=== PATIENT | female | born 1990 | race Two or more races ===

== ENCOUNTER 2017-03-05 11:03 | Emergency (ER) | payer OTHER ==
[~2017-03-05] VITALS: Ht 165.1 cm; Wt 85.4 kg
[~2017-03-05 11:03] MED LIST: ADVIL,NUPRIN,M200 MG PO; ALAVERT10 M1 PO; IBUPROFEN800 MG PO; KEFLEX500 MG PO; MOTRIN800 MG PO; Motrin PO; NAPROSYN500 MG PO; PRENATAL CAPSU1 EACH PO; PROMETHAZINE HC25 M1 PO; ULTRAM50 MG PO
[2017-03-05 12:34] LABS: ADD MIUA? NO; BILIRUBIN NEGATIVE; BLOOD NEGATIVE; COLOR YELLOW ((YELLOW)); GLUCOSE (STRIP) NEGATIVE; KETONES NEGATIVE; LEUKOCYTES NEGATIVE; NITRITE NEGATIVE; PROTEIN (STRIP) NEGATIVE; SPECIFIC GRAVITY 1.028 (1.000-1.030); UCUL ADDED? NO
[2017-03-05 12:54] LABS: CHLORIDE 103 mEq/L (99-109); POTASSIUM 4.1 mEq/L (3.7-5.4); SODIUM 141 mEq/L (136-147)
[2017-03-05 12:56] LABS: GLUCOSE 84 mg/dL (70-99)
[2017-03-05 13:00] LABS: GFR ESTIMATE (CALCULATED) > 59 mL/min/
[2017-03-05 13:01] LABS: ANION GAP 11 MEQ/L (2-14); UREA NITROGEN (BUN) 13 mg/dL (9-23)
[2017-03-05 13:02] LABS: TOTAL BILIRUBIN 0.8 mg/dL (0.0-1.0)
[2017-03-05 13:04] LABS: ALKALINE PHOSPHATASE 152 IU/L (3-129)
[2017-03-05 13:04] LABS: EOSINOPHIL (%) 5.4 % (0-5); EOSINOPHIL COUNT 0.4 K/uL (0-0.3); HEMATOCRIT 40.9 % (36.0-46.0); IMMATURE GRANULOCYTE (%) 0.1 % (0.0-0.7); LYMPHOCYTE COUNT 2.6 K/uL (1.0-2.8); MCH 27.6 PG (29.0-34.0); MCHC 32.8 G/DL (30.0-36.0); MCV 84.3 FL (83-99); MEAN PLAT.VOLUME 9.2 uM^3 (9.5-12.4); MONOCYTE (%) 6.6 % (3-12); MONOCYTE COUNT 0.5 K/uL (0-0.8); NEUTROPHIL (%) 52.7 % (45-76); PLATELET COUNT 300 K/uL (156-360); RBC DIS.WIDTH-SD 39.9 % (39-53); RED BLOOD COUNT 4.85 M/uL (3.80-5.20); WHITE BLOOD COUNT 7.6 K/uL (4.1-10.2)
[2017-03-05] MEDS ORDERED: ZOFRAN4 MG PO (14:29)
[2017-03-05] MEDS ORDERED: BENTYL20 MG PO (14:29)
[2017-03-05 14:39] VITALS: BP 102/78
== END 2017-03-05 14:40 | disposition home or self-care (01) ==
LOC: EME 11:03
PROVIDERS: Emergency Medicine
DX: R10.9 Unspecified abdominal pain (principal); R11.0 Nausea; R35.0 Frequency of micturition; R39.15 Urgency of urination; K42.9 Umbilical hernia without obstruction or gangrene
CPT/HCPCS: 74022; 80053; 81003; 85025; 99281; 99284; J1885; J7030

== ENCOUNTER 2017-05-01 10:09 | Emergency (ER) | payer OTHER ==
[~2017-05-01] VITALS: Ht 165.1 cm; Wt 86.4 kg
[~2017-05-01 10:09] MED LIST changes: +BENTYL20 MG PO; +ZOFRAN4 MG PO
[2017-05-01 14:52] LABS: HEMATOCRIT 40.9 % (36.0-46.0); MCH 27.9 PG (29.0-34.0); MCHC 32.8 G/DL (30.0-36.0); MEAN PLAT.VOLUME 9.5 uM^3 (9.5-12.4); PLATELET COUNT 343 K/uL (156-360); RBC DIS.WIDTH-CV 13.2 % (11.8-14.6); RBC DIS.WIDTH-SD 41.2 % (39-53); RED BLOOD COUNT 4.81 M/uL (3.80-5.20); WHITE BLOOD COUNT 8.3 K/uL (4.1-10.2)
[2017-05-01 14:54] LABS: ADD MIUA? YES; BILIRUBIN NEGATIVE; BLOOD MODERATE; COLOR YELLOW ((YELLOW)); GLUCOSE (STRIP) NEGATIVE; KETONES NEGATIVE; LEUKOCYTES TRACE; NITRITE NEGATIVE; PROTEIN (STRIP) NEGATIVE; SPECIFIC GRAVITY 1.016 (1.000-1.030); UROBILINOGEN 0.2 MG/DL (0.2-1.0)
[2017-05-01 14:59] LABS: BACTERIA RARE /HPF; EPITHELIAL CELLS 4+ /HPF; MUCUS TRACE /LPF; RED BLOOD CELLS 0-5 /HPF (0-5); WHITE BLOOD CELLS 0-5 /HPF (0-5)
[2017-05-01 15:00] LABS: INTERNAL CONTROL VALID? YES
[2017-05-01 15:02] LABS: CHLORIDE 105 mEq/L (99-109); POTASSIUM 4.2 mEq/L (3.7-5.4); SODIUM 139 mEq/L (136-147)
[2017-05-01 15:04] LABS: GLUCOSE 80 mg/dL (70-99)
[2017-05-01 15:06] LABS: ANION GAP 8 MEQ/L (2-14); TOTAL BILIRUBIN 0.7 mg/dL (0.0-1.0)
[2017-05-01 15:08] LABS: ALKALINE PHOSPHATASE 152 IU/L (3-129); GFR ESTIMATE (CALCULATED) > 59 mL/min/
[2017-05-01 15:09] LABS: UREA NITROGEN (BUN) 16 mg/dL (9-23)
[2017-05-01 15:11] LABS: LIPASE 35 U/L (1.0-51.0)
[2017-05-01] MEDS ORDERED: MOTRIN600 MG PO (16:24)
[2017-05-01 16:34] VITALS: BP 115/75
== END 2017-05-01 16:34 | disposition home or self-care (01) ==
LOC: EME 10:09 → RME 10:09
PROVIDERS: Physician Assistant
DX: R10.9 Unspecified abdominal pain (principal); S39.012A Strain of muscle, fascia and tendon of lower back, initial encounter; X58.XXXA Exposure to other specified factors, initial encounter; R51 Headache
CPT/HCPCS: 80053; 81003; 83690; 84703; 85027; 99281; 99284

== ENCOUNTER 2017-09-16 14:24 | Emergency (ER) | payer OTHER ==
[~2017-09-16] VITALS: Ht 165.1 cm; Wt 87.8 kg
[~2017-09-16 14:24] MED LIST changes: +MOTRIN600 MG PO
[2017-09-16] MEDS ORDERED: PERCOCET 5/31 TABLET PO (16:32)
[2017-09-16] MEDS ORDERED: MOTRIN800 MG PO (16:32)
[2017-09-16 17:34] VITALS: BP 109/59
[2017-09-20] MEDS ORDERED: ENDOCET 5-3251 EACH PO (12:21)
[2017-09-20] MEDS ORDERED: MOTRIN800 MG PO (12:22)
== END 2017-09-16 17:36 | disposition home or self-care (01) ==
LOC: EME 14:24 → EXP 14:24
DX: S82.391A Other fracture of lower end of right tibia, initial encounter for closed fracture (principal); S82.831A Other fracture of upper and lower end of right fibula, initial encounter for closed fracture; W10.9XXA Fall (on) (from) unspecified stairs and steps, initial encounter; Y93.01 Activity, walking, marching and hiking; Y92.008 Other place in unspecified non-institutional (private) residence as the place of occurrence of the external cause; F32.9 Major depressive disorder, single episode, unspecified; Z91.040 Latex allergy status
CPT/HCPCS: 73610; 99281; 99284; J2405; J3010

== ENCOUNTER 2017-09-25 09:42 | Day surgery (SDC) | payer OTHER ==
[~2017-09-25] VITALS: Ht 165.1 cm; Wt 88.0 kg
[~2017-09-25 09:42] MED LIST changes: +ENDOCET 5-3251 EACH PO; +PERCOCET 5/31 TABLET PO
[2017-09-25 10:57] VITALS: BP 120/64
[2017-09-25 17:56] VITALS: BP 118/72
[2017-09-25 18:31] VITALS: BP 127/76
== END 2017-09-25 18:35 | disposition home or self-care (01) ==
LOC: SDC 09:42
PROVIDERS: Orthopaedic Surgery
PROC: 0QHJ04Z Insertion of Internal Fixation Device into Right Fibula, Open Approach (ICD-10-PCS; principal; 2017-09-25)
PROC: 0QSG04Z Reposition Right Tibia with Internal Fixation Device, Open Approach (ICD-10-PCS; principal; 2017-09-25)
PROC: 0QSJ04Z Reposition Right Fibula with Internal Fixation Device, Open Approach (ICD-10-PCS; principal; 2017-09-25)
DX: S82.301A Unspecified fracture of lower end of right tibia, initial encounter for closed fracture (principal); S82.831A Other fracture of upper and lower end of right fibula, initial encounter for closed fracture; W10.9XXA Fall (on) (from) unspecified stairs and steps, initial encounter; F41.8 Other specified anxiety disorders; F17.200 Nicotine dependence, unspecified, uncomplicated; Z85.41 Personal history of malignant neoplasm of cervix uteri
CPT/HCPCS: 73610; 76000; 81025; C1713; J0131; J0690; J1100; J1885; J2250; J2405; J2795; J3010; S0020

== ENCOUNTER 2017-11-26 03:14 | Emergency (ER) | payer OTHER ==
[~2017-11-26] VITALS: Ht 165.1 cm; Wt 84.6 kg
[2017-11-26 03:43] LABS: HEMATOCRIT 38.6 % (36.0-46.0); HEMOGLOBIN 13.1 G/DL (11.9-15.5); MCH 28.1 PG (29.0-34.0); MCHC 33.9 G/DL (30.0-36.0); MCV 82.8 FL (83-99); PLATELET COUNT 307 K/uL (156-360); RBC DIS.WIDTH-CV 12.7 % (11.8-14.6); RBC DIS.WIDTH-SD 38.3 % (39-53); RED BLOOD COUNT 4.66 M/uL (3.80-5.20); WHITE BLOOD COUNT 10.3 K/uL (4.1-10.2)
[2017-11-26 03:53] LABS: CHLORIDE 105 mEq/L (99-109); POTASSIUM 3.5 mEq/L (3.7-5.4); SODIUM 137 mEq/L (136-147)
[2017-11-26 03:55] LABS: GLUCOSE 98 mg/dL (70-99)
[2017-11-26 03:59] LABS: CREATININE 0.8 mg/dL (0.6-1.3); GFR ESTIMATE (CALCULATED) > 59 mL/min/
[2017-11-26 04:00] LABS: UREA NITROGEN (BUN) 14 mg/dL (9-23)
[2017-11-26 04:22] LABS: D-DIMER ELISA < 150.00 ng/mLDDU (<230)
[2017-11-26] MEDS ORDERED: PERCOCET 5/31 TABLET PO (05:48)
[2017-11-26 05:58] VITALS: BP 110/76
== END 2017-11-26 05:59 | disposition home or self-care (01) ==
LOC: EME 03:14
PROVIDERS: Emergency Medicine
DX: M79.604 Pain in right leg (principal); G89.29 Other chronic pain; G43.909 Migraine, unspecified, not intractable, without status migrainosus; R56.9 Unspecified convulsions; F32.9 Major depressive disorder, single episode, unspecified; F31.9 Bipolar disorder, unspecified; F17.200 Nicotine dependence, unspecified, uncomplicated; Z91.040 Latex allergy status; Z91.010 Allergy to peanuts; Z91.018 Allergy to other foods
CPT/HCPCS: 80048; 85027; 85379; 93971; 99281; 99284

== ENCOUNTER 2017-12-11 14:18 | Emergency (ER) | payer OTHER ==
[~2017-12-11] VITALS: Ht 165.1 cm; Wt 84.2 kg
[2017-12-11 15:15] LABS: HEMATOCRIT 39.3 % (36.0-46.0); HEMOGLOBIN 13.4 G/DL (11.9-15.5); MCH 28.2 PG (29.0-34.0); MCHC 34.1 G/DL (30.0-36.0); MCV 82.6 FL (83-99); PLATELET COUNT 368 K/uL (156-360); RBC DIS.WIDTH-CV 12.7 % (11.8-14.6); RBC DIS.WIDTH-SD 38.5 % (39-53); RED BLOOD COUNT 4.76 M/uL (3.80-5.20); WHITE BLOOD COUNT 7.7 K/uL (4.1-10.2)
[2017-12-11 15:22] LABS: ALBUMIN 4.5 g/dL (3.2-4.8)
[2017-12-11 15:23] LABS: CHLORIDE 105 mEq/L (99-109); POTASSIUM 4.1 mEq/L (3.7-5.4); SODIUM 141 mEq/L (136-147)
[2017-12-11 15:25] LABS: GLUCOSE 91 mg/dL (70-99); TOTAL PROTEIN 8.1 g/dL (6.4-8.3)
[2017-12-11 15:26] LABS: APPEARANCE SL.HAZY ((CLEAR)); BILIRUBIN NEGATIVE; BLOOD NEGATIVE; COLOR YELLOW ((YELLOW)); GLUCOSE (STRIP) NEGATIVE; KETONES NEGATIVE; LEUKOCYTES TRACE; NITRITE NEGATIVE; PROTEIN (STRIP) 30; UROBILINOGEN 0.2 MG/DL (0.2-1.0)
[2017-12-11 15:27] LABS: TOTAL BILIRUBIN 0.9 mg/dL (0.0-1.0)
[2017-12-11 15:28] LABS: ALKALINE PHOSPHATASE 166 IU/L (3-129)
[2017-12-11 15:29] LABS: CREATININE 1.1 mg/dL (0.6-1.3); GFR ESTIMATE (CALCULATED) > 59 mL/min/
[2017-12-11 15:30] LABS: AST (GOT) 22 IU/L (2-34); UREA NITROGEN (BUN) 17 mg/dL (9-23)
[2017-12-11 15:32] LABS: ALT (GPT) 24 IU/L (3-49)
[2017-12-11 15:33] LABS: BACTERIA NONE SEEN /HPF; EPITHELIAL CELLS 2+ /HPF; MUCUS TRACE /LPF; RED BLOOD CELLS 0-5 /HPF (0-5); UCUL ADDED? NO; WHITE BLOOD CELLS 0-5 /HPF (0-5)
[2017-12-11 15:37] LABS: QUANTITATIVE HCG < 4.0 MIU/ML
[2017-12-11] MEDS ORDERED: MOTRIN600 MG PO (17:56)
[2017-12-11 17:57] LABS: SOURCE URINE
[2017-12-11 18:07] VITALS: BP 116/80
[2017-12-13 12:51] LABS: CHLAMYDIA TRACHOMATIS NEGATIVE; NEISSERIA GONORRHOEAE NEGATIVE
== END 2017-12-11 18:07 | disposition home or self-care (01) ==
LOC: EME 14:18
DX: R10.2 Pelvic and perineal pain (principal); N91.2 Amenorrhea, unspecified; F31.9 Bipolar disorder, unspecified; F32.9 Major depressive disorder, single episode, unspecified; Z72.0 Tobacco use; Z91.040 Latex allergy status
CPT/HCPCS: 76856; 80053; 81003; 84702; 85027; 87491; 87591; 99281; 99284